=== PATIENT | male | born 1970 | race Hispanic/Latino ===

== ENCOUNTER 2023-08-21 11:03 | Emergency (ER) | payer OTHER ==
[~2023-08-21] VITALS: Ht 172.7 cm; Wt 106.6 kg
[2023-08-21] MEDS ORDERED: FAMOTIDINE 20MG VIAL IV ONE (12:00)
[2023-08-21] MEDS ORDERED: 0.9%NACL 1000ML 1,000 ML IV ONE (12:00)
[2023-08-21] MEDS ORDERED: BENZONATATE 100 MG CAPSULE PO ONE (12:00)
[2023-08-21] MEDS ORDERED: METOCLOPRAMIDE 10 MG/2 ML VIAL IVP ONE (12:00)
[2023-08-21] MEDS ORDERED: ALBUTEROL 0.083% 2.5 MG/3 ML INH IH ONE (12:00)
[2023-08-21] MEDS ORDERED: KETOROLAC 30MG VIAL (30MG/ML) IVP ONE (12:00)
[2023-08-21 12:04] LABS: BASOPHILS # (AUTO) 0.05 K/uL (0.00-0.20); BASOPHILS % (AUTO) 0.6 % (0.0-5.0); EOSINOPHILS # (AUTO) 0.27 K/uL (0.00-0.70); EOSINOPHILS % (AUTO) 3.5 % (0.0-8.0); IMMATURE GRANULOCYTE ABSOLUTE 0.05 K/uL (0-1); LYMPHOCYTES # (AUTO) 1.5 K/uL (1.0-4.8); LYMPHOCYTES % (AUTO) 19.2 % (21.0-51.0); MEAN CORPUSCULAR HGB CONC 34.7 g/dL (32.0-36.0); MEAN CORPUSCULAR VOLUME 83.6 fL (79-99); MONOCYTES # (AUTO) 0.8 K/uL (0.1-1.0); MONOCYTES % (AUTO) 10.6 % (3.0-13.0); NEUTROPHILS # (AUTO) 5.1 K/uL (1.8-7.7); NEUTROPHILS % (AUTO) 65.5 % (40.0-77.0); PLATELET COUNT (AUTO) 270 K/uL (130-400); RED BLOOD CELL COUNT(AUTO) 5.38 MIL/uL (4.50-6.20); RED CELL DISTRIBUTION WIDTH 13.1 % (11.0-15.5); WHITE BLOOD COUNT (AUTO) 7.8 K/uL (4.8-10.8)
[2023-08-21 12:08] LABS: RAPID GROUP A STREP negative (NEGATIVE)
[2023-08-21 12:12] LABS: SARS-CoV-2, RNA, NAAT POSITIVE SARS CoV-2 (NEGATIVE)
[2023-08-21 12:14] LABS: POTASSIUM 3.4 mmol/L (3.5-5.1)
[2023-08-21 12:18] LABS: INFLUENZA TYPE A Negative For Type A (NEGATIVE)
[2023-08-21 12:19] VITALS: PULSE 82; RESP 18
[2023-08-21 12:21] LABS: INFLUENZA TYPE B Positive For Type B (NEGATIVE)
[2023-08-21 14:20] VITALS: BP 147/89; PULSE 94; RESP 18; O2SAT 97
[2023-08-21] MEDS ORDERED: ALBUHFA IH (15:01)
[2023-08-21] MEDS ORDERED: AUD IH (15:01)
[2023-08-21] MEDS ORDERED: BENZ-39 PO (15:01)
[2023-08-21] MEDS ORDERED: POTASSIUM BICARB/CIT AC 25 MEQ TABLET.EFF PO ONE (15:30)
== END 2023-08-21 15:22 | disposition home or self-care (01) ==
LOC: EDH 11:03
DX: J20.8 Acute bronchitis due to other specified organisms (principal); B34.2 Coronavirus infection, unspecified; J11.1 Influenza due to unidentified influenza virus with other respiratory manifestations; E87.6 Hypokalemia; E78.00 Pure hypercholesterolemia, unspecified; I10 Essential (primary) hypertension; Z20.822 Contact with and (suspected) exposure to COVID-19
CPT/HCPCS: 99285; 96374; 71045; 96375; 87635; 96361; 82550; 84484; 80048; 85025; 87880; 87804 ×2; 83605; 36415; 71100; 93005; 94640; C9803; J3490; J7030; J1885; J2765

== ENCOUNTER 2023-08-24 08:42 | Emergency (ER) | payer OTHER ==
[~2023-08-24] VITALS: Ht 172.7 cm; Wt 106.6 kg
[~2023-08-24 08:42] MED LIST: ALBUHFA IH; AUD IH; BENZ-39 PO
[2023-08-24] MEDS ORDERED: KETOROLAC 30MG VIAL (30MG/ML) IV ONE (09:30)
[2023-08-24] MEDS ORDERED: 0.9%NACL 1000ML 1,000 ML IV ONE (09:30)
[2023-08-24 09:34] LABS: BASOPHILS # (AUTO) 0.04 K/uL (0.00-0.20); BASOPHILS % (AUTO) 0.4 % (0.0-5.0); EOSINOPHILS # (AUTO) 0.36 K/uL (0.00-0.70); EOSINOPHILS % (AUTO) 3.3 % (0.0-8.0); IMMATURE GRANULOCYTE ABSOLUTE 0.08 K/uL (0-1); LYMPHOCYTES # (AUTO) 2.5 K/uL (1.0-4.8); LYMPHOCYTES % (AUTO) 22.8 % (21.0-51.0); MEAN CORPUSCULAR HEMOGLOBIN 28.5 pg (27.0-33.0); MEAN CORPUSCULAR HGB CONC 34.1 g/dL (32.0-36.0); MEAN CORPUSCULAR VOLUME 83.5 fL (79-99); MONOCYTES # (AUTO) 0.8 K/uL (0.1-1.0); MONOCYTES % (AUTO) 7.7 % (3.0-13.0); NEUTROPHILS # (AUTO) 7.1 K/uL (1.8-7.7); NEUTROPHILS % (AUTO) 65.1 % (40.0-77.0); PLATELET COUNT (AUTO) 338 K/uL (130-400); RED BLOOD CELL COUNT(AUTO) 5.51 MIL/uL (4.50-6.20); RED CELL DISTRIBUTION WIDTH 12.8 % (11.0-15.5)
[2023-08-24 09:43] LABS: CREATININE 0.9 mg/dL (0.5-1.5); POTASSIUM 3.8 mmol/L (3.5-5.1)
[2023-08-24 09:46] LABS: ALBUMIN 3.7 g/dL (3.5-5.0); BILIRUBIN,TOTAL 0.4 mg/dL (0.2-1.0)
[2023-08-24] MEDS ORDERED: GUAI600T50 PO (11:02)
[2023-08-24] MEDS ORDERED: BENZ-39 PO (11:02)
[2023-08-24] MEDS ORDERED: ACET-2079 PO ×2 (11:02→11:27)
[2023-08-24] MEDS ORDERED: IPRA6S NASAL (11:02)
[2023-08-24 11:23] VITALS: BP 163/74; PULSE 84; RESP 18; O2SAT 96
== END 2023-08-24 11:50 | disposition home or self-care (01) ==
LOC: EDH 08:42
DX: R07.81 Pleurodynia (principal); J06.9 Acute upper respiratory infection, unspecified; R05.9 Cough, unspecified; M47.9 Spondylosis, unspecified; E78.00 Pure hypercholesterolemia, unspecified; E03.9 Hypothyroidism, unspecified; I10 Essential (primary) hypertension; Z90.49 Acquired absence of other specified parts of digestive tract
CPT/HCPCS: 99284; 96374; 71046; 96361; 80061; 83735; 84484; 80053; 85025; 36415; 93005; J7030; J1885